=== PATIENT | male | born 1950 ===

== ENCOUNTER 2023-06-08 08:14 | Day surgery (SDC) | payer OTHER ==
[2023-06-08] VITALS (9 sets, daily range): BP systolic 114–131; BP diastolic 70–82
[~2023-06-08] VITALS: Ht 185.4 cm; Wt 81.3 kg
[~2023-06-08 08:14] MED LIST: Triamcinolone A15 G3 TOP
--- NOTE | 2023-06-08 13:47 | NUR ---
Patient up to Ambulate independently. Gait steady. Discharge instructions reviewed with patient. Patient verbalizes understanding. Copy given to patient to take home. Dressing to procedure site clean, dry, intact with no visible drainage, swelling, erythema or bruising noted. Patient States Post-Procedure ride home has been arranged with . Discharged via wheelchair to private car for ride home.
== END 2023-06-08 13:44 | disposition home or self-care (01) ==
LOC: ORSCMMR 08:14 → ORD 09:30 → ORSCMMR 13:44
PROVIDERS: Surgery
PROC: 0WUF4JZ Supplement Abdominal Wall with Synthetic Substitute, Percutaneous Endoscopic Approach (ICD-10-PCS; principal; 2023-06-08 10:00)
PROC: 8E0W4CZ Robotic Assisted Procedure of Trunk Region, Percutaneous Endoscopic Approach (ICD-10-PCS; principal; 2023-06-08 10:00)
DX: K43.6 Other and unspecified ventral hernia with obstruction, without gangrene (principal); K42.9 Umbilical hernia without obstruction or gangrene
CPT/HCPCS: 93005; 93010; A9270; C1781; J0690; J1100; J2405; J2704; J3010; J7120